=== PATIENT | female | born 1995 | race Caucasian/White ===

== ENCOUNTER 2018-04-06 17:31 | Emergency (ER) | payer SELFPAY ==
[~2018-04-06] VITALS: Ht 160 cm; Wt 63.6 kg
[2018-04-06 17:35] VITALS: BP 142/84; PULSE 92; TEMP 98.6
[2018-04-06 17:57] LABS: COLLECTION METHOD CLEAN CATCH
[2018-04-06 18:06] LABS: MUCOUS Present /lpf; PH 8 (5-8); URINE APPEARANCE Cloudy; URINE BACTERIA Rare /hpf; URINE BILIRUBIN Negative (NEGATIVE); URINE BLOOD 2+ (NEGATIVE); URINE COLOR Yellow; URINE GLUCOSE Negative (NEGATIVE); URINE KETONE Negative (NEGATIVE); URINE LEUKOCYTE ESTERASE Trace (NEGATIVE); URINE NITRATE Negative (NEGATIVE); URINE PROTEIN(semi-quant) 1+ (NEGATIVE); URINE RBC >50 /hpf
[2018-04-06] MEDS ORDERED: MACROBID 1100 MG/CAP PO (18:12)
[2018-04-06] MEDS ORDERED: PYRIDIUM 100MG100 MG PO (18:12)
== END 2018-04-06 18:28 | disposition home or self-care (01) ==
LOC: COL.ER 17:31
PROVIDERS: Physician Assistant
DX: N39.0 Urinary tract infection, site not specified (principal)